=== PATIENT | male | born 1990 | race Caucasian/White ===

== ENCOUNTER 2017-03-31 20:55 | Emergency (ER) | payer OTHER, BC ==
[2017-03-31] MEDS ORDERED: Diphtheria,Pertussis(Acell),Tetanus Vaccine 0.5 ML SDV IM ONE (21:24)
[2017-03-31] MEDS ORDERED: Ibuprofen 800 MG Tab PO ONE (21:28)
--- NOTE | 2017-03-31 21:54 | EDM.PDOC ---
ED HPI GENERAL MEDICAL PROBLEM - General Chief Complaint: Upper Extremity Injury/Pain Stated Complaint: CUT PINKY ON LEFT HAND Time Seen by Provider: 03/31/17 21:21 Source of Information: Reports: Patient History Limitations: Reports: No Limitations - History of Present Illness INITIAL COMMENTS - FREE TEXT/NARRATIVE: 26-year-old male presents for evaluation and treatment of injury to the left hand fifth finger. Patient reports he was at work today. Injury occurred around 1600. Reports he was using an impact wrench and the socket slipped causing a crush injury between the socket and a metal wall. He states he had trouble controlling the bleeding throughout the day. States he did wash the wound initially and applied antibacterial ointment. Reports numbness to the distal fingertip. Reports a laceration to the distal fingertip. Patient is a diabetic. Unsure of last tetanus. Believes it was over 10 years ago. Onset: Today Left Hand Pain Score (Numeric/FACES): 5 - Related Data Allergies Allergy/AdvReac Type Severity Reaction Status Date / Time No Known Allergies Allergy Verified 03/31/17 21:05 Home Meds: Home Meds Acetaminophen/oxyCODONE [Percocet 325-5 MG] 1 each PO Q6HR PRN #10 tab 03/31/17 [Rx] Cephalexin [IJP: Cephalexin] 500 mg PO Q6HR #39 cap 03/31/17 [Rx] Gabapentin [Neurontin] 300 mg PO DAILY 03/31/17 [History] Levothyroxine [Sythroid] 100 mcg PO DAILY 03/31/17 [History] Novolog Insulin Pump. 03/31/17 [History] Past Medical History Endocrine/Metabolic History: Reports: Diabetes, Type I Social & Family History - Tobacco Use Smoking Status *Q: Never Smoker - Recreational Drug Use Recreational Drug Use: No Review of Systems - Review of Systems Review Of Systems: See Below Musculoskeletal: Reports: Hand Pain (left hand fifth finger) Skin: Reports: Wound (left hand distal fifth finger) Neurological: Reports: Numbness. Denies: Tingling ED EXAM, GENERAL - Physical Exam Exam: See Below Exam Limited By: No Limitations General Appearance: Alert, WD/WN, No Apparent Distress Respiratory/Chest: No Respiratory Distress Cardiovascular: Normal Peripheral Pulses, Regular Rate, Rhythm Peripheral Pulses: 2+: Radial (L) Extremities: Normal Range of Motion, Pallor (approximately 1cm area to the left hand 5th finger distal finger tip) Neurological: Alert, Oriented, Normal Cognition Psychiatric: Normal Affect, Normal Mood Skin Exam: Warm, Dry, Wound/Incision (1.25 cm laceration to the distal left 5th finger unlar aspect of the finger) ED TRAUMA EXTREMITY PROCEDURES - Laceration/Wound Repair Left Distal Finger Lac/Wound Length In cm: 1.2 Appearance: Subcutaneous, Linear Distal NVT: No Tendon Injury, Other (distal tip is pale) Anesthetic Type: Local Local Anesthesia - Lidocaine (Xylocaine): 1% Plain Local Anesthetic Volume: 2cc Skin Prep: Chlorhexidine (Hibiciens), Saline, Sterile Drape Exploration/Debridement/Repair: Wound Explored, No Foreign Material Found Closed With: Sutures Suture Size: other (5-0) # of Sutures: 5 Suture Type: Nylon, Interrupted, Simple Sterile Dressing Applied: Nurse Tetanus Status Addressed: Yes Complications: No Course - Vital Signs Last Recorded V/S: Last Vital Signs Temp 36.3 C 03/31/17 21:07 Pulse 78 03/31/17 21:07 Resp 14 03/31/17 21:07 BP 156/97 H 03/31/17 21:07 Pulse Ox 98 03/31/17 21:07 - Orders/Labs/Meds Orders: Active Orders 24 hr Category Date Time Status Vaccines to be Administered [RC] PER UNIT ROUTINE Care 03/31/17 21:24 Active Meds: Medications Discontinued Medications Generic Name Dose Route Start Last Admin Trade Name Freq PRN Reason Stop Dose Admin Cephalexin 500 mg 03/31/17 22:02 03/31/17 22:07 Keflex PO 03/31/17 22:03 500 mg ONETIME ONE Administration Diphtheria/Tetanus/Acell Pertussis 0.5 ml 03/31/17 21:24 03/31/17 21:36 Adacel IM 03/31/17 21:25 0.5 ml .ONCE ONE Administration Ibuprofen 800 mg 03/31/17 21:28 03/31/17 21:36 Motrin PO 03/31/17 21:29 800 mg ONETIME ONE Administration Lidocaine HCl 50 ml 03/31/17 22:01 03/31/17 22:07 Xylocaine 1% INJECT 03/31/17 22:02 50 ml ONETIME ONE Administration - Radiology Interpretation Free Text/Narrative:: xray of the left 5th finger shows a nondisplaced fracture of the distal phalnex - Re-Assessments/Exams Free Text/Narrative Re-Assessment/Exam: 03/31/17 22:[address] De LaC ruz. Recommended cephalexin qid an follow-up with Viktoria Quiroz. 5 sutures placed to the distal finger. Toleated well. No complications. Tetanus updated. Keflex given here in the ER. Discharge instructions as documented. Departure - Departure Time of Disposition: 22:32 Disposition: Home, Self-Care 01 Condition: Fair Clinical Impression: Open fracture - Discharge Information Prescriptions: Acetaminophen/oxyCODONE [Percocet 325-5 MG] 1 each PO Q6HR PRN #10 tab PRN Reason: Pain Cephalexin [IJP: Cephalexin] 500 mg PO Q6HR #39 cap Instructions: Finger Fracture Referrals: Richelle Degroot NP [Primary Care Provider] - Jayesh Quiroz MD [Physician] - Forms: ED Department Discharge, ED Return to Work/School Form Additional Instructions: Cephalexin 1 tab 4 times a day for 10 days. First dose was given in The ER. Start your prescription tomorrow. Keep the splint on at all times. have the sutures removed in 10 days. Your primary care provider can do this for you. Call [phone] schedule her. Monitor the wound for signs of infection such as increased swelling, pus or redness. you are on Antibiotics to prevent this; However, if you do appreciate this Present to the clinic or the ER. [id number] Tylenol or Motrin as needed for pain relief. for pain not relieved by Tylenol or Motrin may take Percocet 1 tab every 4-[address] machinery within 12 hours of taking Percocet. Percocet can be habit-forming, I recommend you take as few of these as needed to control your pain. may work as long as you are not requiring narcotic pain medications for pain control. Recommend light duty and no use of left hand until cleared by orthopedics. Please return to the ER if your symptoms change or worsen. - My Orders Last 24 Hours: My Active Orders 03/31/17 21:24 Vaccines to be Administered [RC] PER UNIT ROUTINE - Assessment/Plan Last 24 Hours: My Active Orders 03/31/17 21:24 Vaccines to be Administered [RC] PER UNIT ROUTINE
[2017-03-31] MEDS ORDERED: Lidocaine 1% 50 ML MDV INJECT ONE (22:01)
[2017-03-31] MEDS ORDERED: Cephalexin 500 MG Cap PO ONE (22:02)
--- NOTE | 2017-04-01 07:10 | CR ---
Left fifth finger: Four views of the left fifth finger were obtained. Soft tissue injury is seen distally. Fracture is identified within the distal phalanx. No additional abnormality is seen. Impression: 1. Soft tissue injury and fracture as noted above. Diagnostic code #3
== END 2017-03-31 22:42 | disposition home or self-care (01) ==
LOC: JD.ED 20:55
DX: S62.637A Displaced fracture of distal phalanx of left little finger, initial encounter for closed fracture (principal); S61.217A Laceration without foreign body of left little finger without damage to nail, initial encounter; Z23 Encounter for immunization; E10.9 Type 1 diabetes mellitus without complications; Z79.4 Long term (current) use of insulin; Z79.899 Other long term (current) drug therapy; W23.0XXA Caught, crushed, jammed, or pinched between moving objects, initial encounter; Y93.89 Activity, other specified; Y99.0 Civilian activity done for income or pay
CPT/HCPCS: 12001; 73140; 90471; 90715; 99283; A9270

== ENCOUNTER 2023-04-23 11:11 | Emergency (ER) | payer OTHER ==
[2023-04-23 12:17] LABS: BASOPHILS ABSOLUTE AUTO 0.1 K/mm3 (0.0-0.2); BASOPHILS PERCENT AUTO 0.2 % (0.0-1.0); EOSINOPHILS ABSOLUTE AUTO 0.1 K/mm3 (0.0-0.4); EOSINOPHILS PERCENT AUTO 0.4 % (0.0-6.0); HEMATOCRIT 44.8 % (42.0-52.0); HEMOGLOBIN 15.3 gm/dl (14.0-18.0); IMMATURE GRAN ABSOLUTE AUTO 0.12 K/mm3 (0.00-0.05); IMMATURE GRAN PERCENT AUTO 0.5 % (0.0-0.4); LYMPHOCYTES ABSOLUTE AUTO 1.1 K/mm3 (1.0-4.8); LYMPHOCYTES PERCENT AUTO 5.2 % (24.0-44.0); MEAN CORPUSCULAR HEMOGLOBIN 29.3 pg (28.0-32.0); MEAN CORPUSCULAR HGB CONC 34.2 g/dl (32.0-36.0); MEAN CORPUSCULAR VOLUME 85.7 fl (83.0-99.0); MEAN PLATELET VOLUME 9.7 fl (9.4-12.4); MONOCYTES ABSOLUTE AUTO 2.3 K/mm3 (0.0-0.8); MONOCYTES PERCENT AUTO 10.3 % (0.0-8.0); NEUTROPHILS ABSOLUTE AUTO 18.4 K/mm3 (1.8-7.7); NEUTROPHILS PERCENT AUTO 83.4 % (41.0-71.0); PLATELET COUNT,PLT 196 K/mm3 (150-400); RED BLOOD CELL COUNT 5.23 M/mm3 (4.52-5.90); WHITE BLOOD CELL COUNT,WBC 22.05 K/mm3 (3.9-11.3)
[2023-04-23 12:40] LABS: ALBUMIN 3.7 g/dl (3.4-5.0); ANION GAP 16.5 (5-15); BILIRUBIN TOTAL 1.6 mg/dL (0.2-1.0); BUN/CREATININE RATIO 10.8 (14-18); C-REACTIVE PROTEIN 8.61 mg/dL (<0.30); CALCIUM 8.5 mg/dL (8.5-10.1); CREATININE 1.2 mg/dL (0.7-1.3); EST CRCL DRUG DOSING (CG) 78.3 mL/min; POTASSIUM,K 3.5 mEq/L (3.5-5.1); PROTEIN TOTAL,TP 7.4 g/dl (6.4-8.2)
[2023-04-23] MEDS: Ondansetron 4 MG/2 ML SDV IVPUSH ONE (12:41)
[2023-04-23] MEDS: Ketorolac 30 MG/ML SDV IVPUSH ONE (12:41)
[2023-04-23] MEDS: Sodium Chloride 0.9% 1,000 ML IV STA (12:42)
[2023-04-23 12:46] LABS: APPEARANCE,URINE CLEAR (Clear); BILIRUBIN,URINE 1+ (Negative); COLOR,URINE DARK YELLOW (Yellow); GLUCOSE,URINE 2+ (Negative); KETONES,URINE 1+ (Negative); LEUKOCYTE ESTERASE,URINE NEGATIVE (Negative); NITRITE,URINE NEGATIVE (Negative); OCCULT BLOOD,URINE 2+ (Negative); PROTEIN,URINE 2+ (Negative)
[2023-04-23] MEDS: Sodium Chloride 0.9% 10 ML Syringe FLUSH PRN (12:50)
[2023-04-23 13:08] LABS: SLIDE REVIEW ABNORMAL SMEAR
[2023-04-23 13:11] LABS: BACTERIA,URINE FEW /hpf (FEW); EPITHELIAL CELLS,URINE 0-5 /hpf (0-5); HYALINE CASTS,URINE 0-5 /lpf (0-5); MUCUS,URINE MANY /hpf (FEW); WBC,URINE 0-5 /hpf (0-5)
[2023-04-23 13:29] LABS: CORONAVIRUS COVID-19 NAA NEGATIVE (NEGATIVE); INFLUENZA A NAA NEGATIVE (NEGATIVE); RESPIRATORY SYNCYTIAL VIR NAA NEGATIVE (NEGATIVE)
[2023-04-23 13:41] LABS: LACTIC ACID 1.5 mmol/L (0.4-2.0)
[2023-04-23] MEDS: cefTRIAXone 2 GM in Sodium Chloride 0.9% 100 ML IV ONE (13:52)
== END 2023-04-23 15:34 | disposition home or self-care (01) ==
LOC: JD.ED 11:11
DX: J18.9 Pneumonia, unspecified organism (principal); I10 Essential (primary) hypertension; E78.00 Pure hypercholesterolemia, unspecified; E10.9 Type 1 diabetes mellitus without complications; Z86.16 Personal history of COVID-19; Z79.899 Other long term (current) drug therapy
CPT/HCPCS: 0241U; 36415; 71046; 80053; 81001; 83605; 85025; 85379; 86140; 87040; 96361; 96365; 96375; 99285; J0696; J1885; J2405; J3490; J7030

== ENCOUNTER 2023-04-24 11:16 | Emergency (ER) | payer OTHER ==
[2023-04-24] MEDS: Sodium Chloride 0.9% 10 ML Syringe FLUSH PRN (12:01)
[2023-04-24] MEDS: Ketorolac 30 MG/ML SDV IVPUSH ONE (12:12)
[2023-04-24] MEDS: Ondansetron 4 MG/2 ML SDV IVPUSH ONE (12:12)
[2023-04-24] MEDS: HYDROmorphone 0.5 MG/0.5 ML Syringe IVPUSH ONE (12:12)
[2023-04-24] MEDS: Sodium Chloride 0.9% 1,000 ML IV SCH (12:13)
[2023-04-24 12:17] LABS: BASOPHILS ABSOLUTE AUTO 0.1 K/mm3 (0.0-0.2); BASOPHILS PERCENT AUTO 0.4 % (0.0-1.0); EOSINOPHILS PERCENT AUTO 0.2 % (0.0-6.0); HEMATOCRIT 42.7 % (42.0-52.0); HEMOGLOBIN 14.4 gm/dl (14.0-18.0); IMMATURE GRAN ABSOLUTE AUTO 0.06 K/mm3 (0.00-0.05); IMMATURE GRAN PERCENT AUTO 0.5 % (0.0-0.4); LYMPHOCYTES ABSOLUTE AUTO 1.6 K/mm3 (1.0-4.8); LYMPHOCYTES PERCENT AUTO 12.5 % (24.0-44.0); MEAN CORPUSCULAR HEMOGLOBIN 29.1 pg (28.0-32.0); MEAN CORPUSCULAR HGB CONC 33.7 g/dl (32.0-36.0); MEAN CORPUSCULAR VOLUME 86.3 fl (83.0-99.0); MEAN PLATELET VOLUME 9.6 fl (9.4-12.4); MONOCYTES ABSOLUTE AUTO 1.1 K/mm3 (0.0-0.8); MONOCYTES PERCENT AUTO 8.8 % (0.0-8.0); NEUTROPHILS ABSOLUTE AUTO 9.8 K/mm3 (1.8-7.7); NEUTROPHILS PERCENT AUTO 77.6 % (41.0-71.0); PLATELET COUNT,PLT 195 K/mm3 (150-400); RED BLOOD CELL COUNT 4.95 M/mm3 (4.52-5.90); WHITE BLOOD CELL COUNT,WBC 12.66 K/mm3 (3.9-11.3)
[2023-04-24 12:24] LABS: APPEARANCE,URINE CLEAR (Clear); BILIRUBIN,URINE 1+ (Negative); COLOR,URINE DARK YELLOW (Yellow); GLUCOSE,URINE 2+ (Negative); KETONES,URINE 3+ (Negative); LEUKOCYTE ESTERASE,URINE NEGATIVE (Negative); NITRITE,URINE NEGATIVE (Negative); OCCULT BLOOD,URINE 1+ (Negative); PROTEIN,URINE 1+ (Negative); UROBILINOGEN,URINE >=8.0 (0.2-1.0)
[2023-04-24 12:35] LABS: BACTERIA,URINE FEW /hpf (FEW); EPITHELIAL CELLS,URINE 0-5 /hpf (0-5); MUCUS,URINE FEW /hpf (FEW); WBC,URINE 0-5 /hpf (0-5)
[2023-04-24 12:38] LABS: A/G RATIO 0.8 (1-2); ALBUMIN 3.2 g/dl (3.4-5.0); ANION GAP 13.1 (5-15); BILIRUBIN TOTAL 0.8 mg/dL (0.2-1.0); BUN/CREATININE RATIO 17.3 (14-18); CALCIUM 8.6 mg/dL (8.5-10.1); CREATININE 1.1 mg/dL (0.7-1.3); EST CRCL DRUG DOSING (CG) 98.19 mL/min; POTASSIUM,K 4.1 mEq/L (3.5-5.1); PROTEIN TOTAL,TP 7.1 g/dl (6.4-8.2)
[2023-04-24] MEDS: cefTRIAXone 1 GM in Sodium Chloride 0.9% 100 ML IV ONE (13:48)
== END 2023-04-24 14:25 | disposition home or self-care (01) ==
LOC: JD.ED 11:16
DX: N20.2 Calculus of kidney with calculus of ureter (principal); N23 Unspecified renal colic; J18.9 Pneumonia, unspecified organism; I10 Essential (primary) hypertension; E78.00 Pure hypercholesterolemia, unspecified; E10.9 Type 1 diabetes mellitus without complications; E03.9 Hypothyroidism, unspecified; Z86.16 Personal history of COVID-19; Z79.899 Other long term (current) drug therapy
CPT/HCPCS: 36415; 74176; 74176-26; 80053; 81001; 85025; 96361; 96365; 96375; 99284-25; J0696; J1170; J1885; J2405; J3490; J7030